=== PATIENT | female | born 1945 ===

== ENCOUNTER 2016-08-30 10:05 | Emergency (ER) | payer MEDICARE ==
[2016-08-30 10:38] VITALS: BP 130/74; PULSE 88; RESP 19; TEMP 98.3; O2SAT 99
--- NOTE | 2016-08-30 10:46 | ED PDOC ---
Lower Extremity Pain/Injury Time Seen by Provider: 08/30/16 10:40 Chief Complaint (Nursing): Lower Extremity Problem/Injury Chief Complaint (Provider): left knee pain History Per: Patient Additional Complaint(s): 71-year-old female with history of hypertension and high cholesterol presents with left knee pain 3 days. She denies any fall or trauma. She has been taking Advil which has helped. She is able to walk but has pain when doing so. Resting affected knee does help the pain. No fever or chills. Patient also reports history of arthritis. Past Medical History Reviewed: Historical Data, Nursing Documentation, Vital Signs Vital Signs: Last Vital Signs Temp 98.3 F 08/30/16 10:37 Pulse 88 08/30/16 10:37 Resp 19 08/30/16 10:37 BP 130/74 08/30/16 10:37 Pulse Ox 99 08/30/16 10:37 - Medical History PMH: Arthritis, HTN, Hypercholesterolemia - Surgical History Other surgeries: tubal ligation, hysterectomy - Family History Family History: States: No Known Family Hx - Living Arrangements Living Arrangements: With Family - Social History Current smoker - smoking cessation education provided: No Alcohol: None Drugs: Denies - Home Medications Home Medications: Ambulatory Orders Medication Instructions Recorded Hydrochlorothiazide 25 mg PO DAILY 05/14/13 NIFEdipine ER [Nifedipine ER] 60 mg PO DAILY 05/14/13 Naproxen [Naprosyn] 500 mg PO BID #20 tab 08/30/16 - Allergies Allergies/Adverse Reactions: Allergies Allergy/AdvReac Type Severity Reaction Status Date / Time No Known Allergies Allergy Verified 05/14/13 07:53 Wells Criteria for PE - Wells Criteria for Pulmonary Embolism Clinical Signs and Symptoms of DVT: No P.E is #1 Diagnosis, or Equally Likely: No Heart Rate >100: No Immobilization at least 3 days;Surgery previous 4 weeks: No Previous, objectively diagnosed PE or DVT: No Hemoptysis: No Malignancy w/treatment within 6 months, or palliative: No Total Score: 0 Review of Systems ROS Statement: Except As Marked, All Systems Reviewed And Found Negative Constitutional: Negative for: Fever Musculoskeletal: Positive for: Other (left knee pain x 3 days, history of arthritis) Physical Exam - Reviewed Nursing Documentation Reviewed: Yes Vital Signs Reviewed: Yes - Physical Exam Appears: Positive for: Well, Non-toxic, No Acute Distress Skin: Negative for: Rash Eye Exam: Positive for: Normal appearance Cardiovascular/Chest: Positive for: Regular Rate, Rhythm Respiratory: Positive for: Normal Breath Sounds Extremity: Positive for: Other (Mild swelling and tenderness diffusely to left knee with full range of motion, no calf swelling or tenderness, normal distal sensation) Neurologic/Psych: Positive for: Alert, Oriented, Gait (steady) - ECG O2 Sat by Pulse Oximetry: 99 Pulse Ox Interpretation: Normal - Other Rad Left knee x-ray X-Ray: Interpreted by Me, Viewed By Me X-Ray Interpretation: no fx, no dis, mild arthritic changes Medical Decision Making Medical Decision Makin71 year old with 3 day history of atraumatic left knee pain Plan: PO motrin and tylenol X-ray left knee X-ray of left knee demonstrates no acute fracture or dislocation. Patient was given prescription for Naprosyn. Aki wrap was applied to left knee. She was provided with a referral to orthopedist for follow-up. Procedures - Splinting Location: left knee Pre-Made Type: aki wrap Pre-Proc Neuro Vasc Exam: normal Post-Proc Neuro Vasc Exam: normal Disposition - Clinical Impression Clinical Impression: Knee pain - Patient ED Disposition Is Patient to be Admitted: No Counseled Patient/Family Regarding: Studies Performed, Diagnosis, Need For Followup, Rx Given - Disposition Referrals: Melva Wong MD [Staff Provider] - [facility] [Outside] Disposition: Routine/Home Disposition Time: 13:23 Condition: STABLE Additional Instructions: Ice, rest and elevate affected area. Take rx meds as directed as needed for pain. Follow up in 1-2 days with orthopedist. Prescriptions: Naproxen [Naprosyn] 500 mg PO BID #20 tab Instructions: Knee Pain (ED), Arthralgia (ED) Forms: [employer] (Palauan), [employer] (Albanian) Print Language: SYRIAC
--- NOTE | 2016-08-30 14:36 | RAD ---
PROCEDURE: Left Knee Radiographs. HISTORY: Pain. COMPARISON: None. FINDINGS: BONES: Normal. No fracture. JOINTS: Joint spaces are relatively preserved JOINT EFFUSION: None. OTHER FINDINGS: None. IMPRESSION: No evidence of acute displaced fracture nor dislocation.
== END 2016-08-30 13:40 | disposition home or self-care (01) ==
LOC: H.ER 10:05
DX: M25.562 Pain in left knee (principal); E78.00 Pure hypercholesterolemia, unspecified; I10 Essential (primary) hypertension